=== PATIENT | female | born 1980 | race African-American/Black ===

== ENCOUNTER 2025-08-03 18:07 | Emergency (ER) | payer MEDICAID ==
[~2025-08-03] VITALS: Ht 165.1 cm; Wt 109.0 kg
[~2025-08-03 18:07] MED LIST: NORCO
[2025-08-03 18:09] VITALS: O2SAT 99
[2025-08-03] MEDS: LEVETIRACETAM 1000MG PREMIX 100 ML IV ONE (18:38)
[2025-08-03] MEDS: SODIUM CHLORIDE 0.9% 1,000 ML IV ONE (18:38)
[2025-08-03 18:51] LABS: BASOPHILS % 0.8 % (0.0-2.0); EOSINOPHILS % 0.8 % (0.0-5.0); HEMATOCRIT. 37.9 % (36.0-48.0); HEMOGLOBIN. 12.3 g/dL (12.0-16.0); LYMPHOCYTES % 33.1 % (20.0-50.0); MEAN PLATELET VOLUME 7.0 fl (7.4-10.4); MONOCYTES % 5.5 % (2.0-8.0); NEUTROPHILS % 59.8 % (40.0-76.0); PLATELET 339 x1000/uL (130-400); RED BLOOD CELL COUNT 4.19 mill/uL (4.2-5.4); RED CELL DISTRIBUTION WIDTH 16.0 % (11.6-14.6)
[2025-08-03 19:02] LABS: INR 1.0
[2025-08-03 19:05] LABS: CREATININE 0.7 mg/dL (0.6-1.0); UREA NITROGEN BLOOD 8 mg/dL (9-23)
[2025-08-03 19:06] LABS: TROPONIN I HIGH SENSITIVITY 4 ng/L (3.0-34)
[2025-08-03 19:07] LABS: ASPARTATE AMINOTRANSFERASE 15 IU/L (<34); BILIRUBIN DIRECT < 0.1 mg/dL (<=3.0); BILIRUBIN TOTAL 0.2 mg/dL (0.1-1.0)
[2025-08-03 19:08] LABS: PROTEIN TOTAL 7.3 g/dL (6.0-8.3)
[2025-08-03] MEDS ORDERED: ACETAMINOPHEN 325MG TABLET PO ONE (20:45)
[2025-08-03 22:09] LABS: *AMPHETAMINES SCREEN URINE NEGATIVE (NEGATIVE); *BENZODIAZEPINES SCREEN URINE NEGATIVE (NEGATIVE)
[2025-08-03 22:10] LABS: *BARBITURATES SCREEN URINE NEGATIVE (NEGATIVE); *COCAINE SCREEN URINE NEGATIVE (NEGATIVE); CANNABINOID URINE SCREEN PRESUMPTIVE POSITIVE (NEGATIVE); ECSTASY MDMA SCREEN URINE NEGATIVE (NEGATIVE); METHADONE URINE SCREEN NEGATIVE (NEGATIVE); OPIATES URINE SCREEN NEGATIVE (NEGATIVE); PHENCYCLIDINE URINE SCREEN NEGATIVE (NEGATIVE)
[2025-08-03 23:00] LABS: HCG SCREEN NEGATIVE
[2025-08-03 23:02] LABS: CLARITY URINE CLEAR (CLEAR); COLOR URINE YELLOW (YELLOW); GLUCOSE URINE NEGATIVE (NEGATIVE); KETONES URINE NEGATIVE (NEGATIVE); LEUKOCYTE ESTERASE URINE NEGATIVE (NEGATIVE); NITRITE URINE NEGATIVE (NEGATIVE); OCCULT BLOOD URINE 2+ (NEGATIVE); PH URINE 6.0 (4.5-8.0); PROTEIN URINE 1+ (NEGATIVE); SPECIFIC GRAVITY URINE 1.016 (1.005-1.030); UROBILINOGEN URINE 1.0 E.U./dL (0.2-1.0)
[2025-08-03 23:29] VITALS: BP 125/74; PULSE 88; RESP 20; TEMP 37.2; O2SAT 99
[2025-08-03 23:33] LABS: BACTERIA URINE TRACE; RBC URINE 0-2 /hpf (0-2); SQUAMOUS EPITHELIAL CELL URINE 1+ /lpf (RARE/1+); WBC URINE 0-2 /hpf (0-2)
[2025-08-03] MEDS ORDERED: KEPP500 MT (23:46)
[2025-10-01] MEDS ORDERED: NAPR-681 PO (03:56)
[2025-10-01] MEDS ORDERED: AMOX1TAB16 MT (03:56)
[2025-10-01] MEDS ORDERED: T3 PO (03:56)
== END 2025-08-03 23:45 | disposition home or self-care (01) ==
LOC: ER 18:07
DX: R56.9 Unspecified convulsions (principal)
CPT/HCPCS: 80076; 80305; 80048; 81003; 80320; 84703; 83880; 83690; 85025; 85610; 84484; 36415; 71045; 70450; 93005; 96365; 99285; J1953; J7030; G0480